=== PATIENT | female | born 1945 | race Caucasian/White ===

== ENCOUNTER 2025-07-02 10:55 | Outpatient (REF) | payer MEDICARE, OTHER, SELFPAY ==
--- NOTE | ~2025-07-02 | XR_ITS ---
EXAMINATION: XR LUMBOSACRAL SPINE CLINICAL INFORMATION: M43.10 - Spondylolisthesis, site unspecified COMPARISON: None available. TECHNIQUE: Lateral views in neutral, flexion and extension position. AP view. FINDINGS: Multilevel endplate sclerosis and marginal osteophyte formation and/syndesmophyte formation throughout the axial skeleton from the lower thoracic to the lumbar spine. S-shaped curvature of the thoracolumbar spine. Grade 1 anterolisthesis L4-5 in neutral position without reduction or motion during flexion and or extension position. Vascular calcifications, aorta. Vascular clips right upper quadrant abdomen likely prior cholecystectomy. Old superior endplate compression deformities in the lower thoracic spine. XR/XR lumbar spine 4V min IMPRESSION: Multilevel thoracolumbar spondylosis resulting in grade 1 anterolisthesis L4-5 without gross instability. Electronically signed by: Bridger Hinton MD 07/02/2025 11:41 AM EDT
== END 2025-07-02 10:56 | disposition home or self-care (01) ==
LOC: HO.HOSX 10:55
PROVIDERS: Visit Provider Physician Assistant
DX: M43.16 Spondylolisthesis, lumbar region (principal)
CPT/HCPCS: 72110; 99202

== ENCOUNTER 2025-07-02 10:55 | Outpatient (AMB) | payer MEDICARE, OTHER, SELFPAY ==
--- NOTE | 2025-07-02 10:59 | A.SPINEOV_ITS ---
Vital Signs 07/02/25 11:03 Height 5 ft 1 in Weight 215 lb BMI 40.6 Intake Visit Reasons: LBP. Don both leg pain Intake Note: Ms. Douglass is here today c/o Low back pain. Display And Banner Designer Required: No Allergies Iodinated Contrast Media (Contrast Dye) Allergy (Severe, Verified 07/02/25 11:05) Shakiness Noseqny-JHN-NiW Reductase Inhibitor Allergy (Severe, Verified 07/02/25 11:05) Headache Sulfa (Sulfonamide Antibiotics) Allergy (Severe, Verified 07/02/25 11:05) Itching Physical Exam Vital Signs: BMI result Body Mass Index 40.6 Assessment & Plan Assessment & Plan (1) Spondylolisthesis: Code(s): M43.10 - Spondylolisthesis, site unspecified Category: Medical Plan Debby is a pleasant 79 year old female who is self referred to our clinic today for evaluation of low back pain and shooting pains her bilateral lower extremities. She reports this has been ongoing for many years, however has worsened over the course of the last few months. She denies any recent inciting incident that worsened her pain, and simply states that her pain began increasing in severity. When describing her pain she runs her hands in an axial fashion across her low back, and then states that shoots into her bilateral posterior buttocks, lateral thighs, down into the posterior gastrocnemius, and terminates near the lateral calf/dorsal foot. This happens bilaterally, but is notably worse on the right hand side. In addition to this she does report some numbness/tingling associated with the shooting pain down her legs. She states that 1st thing in the morning when attempting to mobilize, and later in the day before bed her pain is the worst. During the day, when she is up walking around or mobilizing she feels like her pain is the best. She does report increased exacerbations of pain with positional changes such as rising from a seated position or getting up out of bed. She states that she is currently taking gabapentin to help mitigate some of her symptoms, but has also attempted Tylenol and NSAIDs in the past. She does not tolerate NSAIDs well, as she has a previous history of colon cancer. She reports that she is currently in physical therapy formally, and also has a son that works in physical therapy who has been helping her with at-home stretching/exercise. Despite this she does not feel it is helping her very much. She has attempted massage therapy in an effort to treat this, and asked several questioned regarding injections. She did not bring her medical Hx / records with her to this visit. PMH: The patient reports she has not unspecified heart murmur. She has osteoarthritis in her right knee. She has dry eyes. She reports history of cholecystectomy, hysterectomy, bladder suspension, colon cancer. She supplements with several vitamins daily due to her poor GI absorption. She has a Hx of severe osteoporosis with 3 years of Reclast infusions. She now reports she only has osteopenia. She denies any diabetes / glucose control issues, denies any other cardiac issues, denies any pulmonary issues. Takes no blood thinners. Social hx: The patient does not smoke, reports no substance use. Medications: The patient reports taking cyclosporin eye drops, Zetia, multiple sdsu-kyg-rqgvhbi supplements, gabapentin. She denies any other medication use. Allergies: Statins, contrast media, sulfa. Physical exam: The patient has 5/5 strength of her upper and lower extremities. She does somewhat struggle to engage full strength in her lower extremities due to the pain. She ambulates well with a non spastic/nonantalgic gait, but is slightly he is in the hunched over when ambulating. She is able to rise from a seated position without much difficulty, and gets up onto the examination table without issue. She uses no assistive devices to ambulate. Her reflexes are 1+ hypoactive in the patella and Achilles, but 2+ normal elsewhere. She has no sensational deficits reported on light touch examination. (-) bilateral straight leg raise. (-) Bach's. (-) clonus. Imaging review: MRI of the lumbar spine completed at [facility] 06/12/2025 shows evidence of spondylolisthesis L4-5 with severe central canal and bilateral foraminal stenosis at this level. Notable compression deformity of L1 & T12. Dynamic lumbar spine x-rays completed during this visit show slightly worsening listhesis at L4-5 which I would rate as a grade 2. There also appears to be a slight levoscoliosis of the lumbar/thoracic spine with the apex near L1. Impression: Debby is a pleasant 79-year-old female who comes in today for evaluation of back pain and shooting pain into her bilateral lower extremities. Has been ongoing for many years, but has significantly worsened over the course of the last few months. The patient is now to the point where she reports 8/10 pain which is nearly constant throughout the day. Her pain is most likely originating from the spondylolisthesis seen at L4-5, causing severe nerve compression. She has attempted several different types of conservative treatment without relief. She did ask many questions regarding cortisone injections for the lumbar spine as an alternative to surgical intervention. I would like to obtain her medical records from her primary care office, given that she has a Hx of severe osteoporosis and notable compression deformities seen on imaging. In the interim I will refer her to [facility] (per her request) for consideration of injections at L4-5 for symptom relief. I would like her to follow up with our office again if her pain worsens, or she does not have meaningful response to injections. By then we will have her records and can better ascertain if she is a candidate for surgery. Thank you for allowing us to care for your patient. The total time spent with this visit with this patient was 67 minutes reviewing history, physical exam, MRI imaging review, dynamic lumbar spine x-ray imaging, and implementation of treatment plan or further diagnostic testing Tyrone Carrillo MD,PhD [facility] Orders: Orders XR lumbar spine 4V min Today M43.10 - Spondylolisthesis, site unspecified Coding Level of Care Code New Pt Level 5 (42041) Diagnoses Spondylolisthesis M43.10
[2025-07-02 11:03] VITALS: BMI 40.6
--- OUTSIDE RECORDS SUMMARY | 2025-07-02 12:24 | XMS_ITS | Encounter Summary ---
Author Organization [facility] Address [address] [place] [address] Phone Care Team Providers Care Waterproofing Mixer Name Role Phone Melanie Godoy MD Primary Care Provide r Bob Pena MD Unavailable [phone] Encounter Details Date Type Department Care Team (Late st Contact Info) Description 06/24/2020 Procedure Pass [facility] [place] [address] [facility], 6th [place] [address] Social History Tobacco Use Types Packs/Day Years Used Date Smoking Tobacco: Never Smokeless Tobacco: Never Alcohol Use Standard Drinks/Week Comments Yes 0 (1 standard drink = 0.6 oz pur e alcohol) 3 cocktails or wine Comments Unknown Sex and Gender Information Value Date Recorded Sex Assigned at Female 04/09/2020 9:05 AM EDT Legal Sex Female 7:15 PM EST Gender Identity Female 04/09/2020 9:05 AM EDT Sexual Orientation Not on file documented as of this encounter Plan of Treatment Not on file documented as of this encounter Visit Diagnoses Not on filedocumented in this encounter Care Teams Waterproofing Mixer Relationship Specialty Start Date End Date Melanie Godoy MD [address] [place] [address] PCP - General 7/1/14 Bob Pena MD [address] [place] [address] [address] [place] [address] [email or web address] Primary Oncologist Medical Oncology 07/31/19 documented as of this encounter Additional Source Comments The information contained in this document represents components of the legal health record. It is not the complete legal health record.[facility]
--- OUTSIDE RECORDS SUMMARY | 2025-07-02 12:24 | XMS_ITS | Encounter Summary ---
Author Organization [facility] Address [address] [place] [address] Phone Care Team Providers Care Machine Pack Assembler Name Role Phone Melanie Godoy MD Primary Care Provide r Bob Pena MD Unavailable [phone] Encounter Details Date Type Department Care Team (Late st Contact Info) Description 06/24/2020 Procedure Pass [facility] for [facility] - [place] [address] [facility], 6th [place] [address] Social History Tobacco Use Types Packs/Day Years [...] on filedocumented in this encounter Care Teams Machine Pack Assembler Relationship Specialty Start Date End Date Melanie Godoy MD [address] [place] [address] PCP - General 7/1/14 Bob Pena MD [address] [place] [address] [address] [place] [address] [email or web address] Primary Oncologist Medical Oncology 07/31/19 documented as of this encounter Additional Source Comments The information contained in this document represents components of the legal health record. It is not the complete legal health record.[facility]
--- OUTSIDE RECORDS SUMMARY | 2025-07-02 12:25 | XMS_ITS | Encounter Summary ---
Author Organization [facility] Address [address] [place] [address] Phone Care Team Providers Care Copy Room Technician Name Role Phone Melanie Godoy MD Primary Care Provide r Bob Pena MD Unavailable [phone] Encounter Details Date Type Department Care Team (Late st Contact Info) Description 03/17/2020 Procedure Pass [facility] [place] [address] [facility], 6th [place] [address] Social History Tobacco Use Types Packs/Day Years [...] on filedocumented in this encounter Care Teams Copy Room Technician Relationship Specialty Start Date End Date Melanie Godoy MD [address] [place] [address] PCP - General 7/1/14 Bob Pena MD [address] [place] [address] [address] [place] [address] [email or web address] Primary Oncologist Medical Oncology 07/31/19 documented as of this encounter Additional Source Comments The information contained in this document represents components of the legal health record. It is not the complete legal health record.[facility]
--- OUTSIDE RECORDS SUMMARY | 2025-07-02 12:25 | XMS_ITS | Encounter Summary ---
Author Organization [facility] Address [address] [place] [address] Phone Care Team Providers Care Highwall Drill Operator Name Role Phone Melanie Godoy MD Primary Care Provide r Bob Pena MD Unavailable [phone] Encounter Details Date Type Department Care Team (Late st Contact Info) Description 05/06/2022 Procedure Pass [facility] [place] [address] [facility], 4th [place] [address] Social History Tobacco Use Types Packs/Day Years Used Date Smoking Tobacco: Never Smokeless Tobacco: Never Alcohol Use Standard Drinks/Week Comments Not Currently 5 (1 standard drink = 0.6 oz pur [...] on filedocumented in this encounter Care Teams Highwall Drill Operator Relationship Specialty Start Date End Date Melanie Godoy MD [address] [place] [address] PCP - General 04/03/14 Bob Pena MD [address] [place] [address] [address] [place] [address] [email or web address] Primary Oncologist Medical Oncology 07/31/19 documented as of this encounter Additional Source Comments The information contained in this document represents components of the legal health record. It is not the complete legal health record.[facility]
--- OUTSIDE RECORDS SUMMARY | 2025-07-02 12:25 | XMS_ITS | Encounter Summary ---
Author Organization [facility] Address [address] [place] [address] Phone Care Team Providers Care Skidder Loader Name Role Phone Melanie Godoy MD Primary Care Provide r Bob Pena MD Unavailable [phone] Encounter Details Date Type Department Care Team (Late st Contact Info) Description 04/09/2025 Procedure Pass [facility] 4 ENDO DEPT [address] [facility], 4th [place] [address] Social History Tobacco Use Types Packs/Day Years Used Date Smoking Tobacco: Never Smokeless Tobacco: Never Alcohol Use Standard Drinks/Week Comments Not Currently 5 (1 standard drink = 0.6 oz pur e alcohol) 3 cocktails or wine Education Answer Date Recorded Are you interested in more education? Not on jj e 01/28/2023 Are you concerned about learning? Not on file 01/28/2023 No 01/28/2023 No 01/28/2023 Digital Access Answer Date Recorded No 03/01/2023 No 03/01/2023 Reliable internet access at home? Not on file 03/01/2023 Device with a working camera? Not on file Intimate Partner Violence Answer Date R ecorded Are you denied basic needs s uch as food, clothing, or medical care? No 04/09/2025 In the past 12 months have y ou been in a relationship with a person who hurts, threatens, or tries to control you? No 04/09/2025 Are you denied basic needs s uch as food, clothing, or medical care? No 04/09/2025 In the past 12 months have y ou been in a relationship with a person who hurts, threatens, or tries to control you? No 04/09/2025 Comments No Sex and Gender Information Value Date Recorded Sex Assigned at Female 04/09/2020 9:05 AM EDT Legal Sex Female 7:15 PM EST Gender Identity Female 04/09/2020 9:05 AM EDT Sexual Orientation Not on file documented as of this encounter Plan of Treatment Not on file documented as of this encounter Visit Diagnoses Not on filedocumented in this encounter Care Teams Skidder Loader Relationship Specialty Start Date End Date Melanie Godoy MD [address] [place] [address] PCP - General 04/03/14 Bob Pena MD [address] [place] [address] [address] [place] [address] [email or web address] Primary Oncologist Medical Oncology 07/31/19 documented as of this encounter Additional Source Comments The information contained in this document represents components of the legal health record. It is not the complete legal health record.[facility]
--- OUTSIDE RECORDS SUMMARY | 2025-07-02 12:25 | XMS_ITS | Encounter Summary ---
Author Organization [facility] Address [address] [place] [address] Phone Care Team Providers Care Equipment Associate Name Role Phone Melanie Godoy MD Primary Care Provide r Bob Pena MD Unavailable [phone] Encounter Details Date Type Department Care Team (Late st Contact Info) Description 07/06/2018 Procedure Pass [facility] [place] 4 ENDO DEPT [address] [facility], 4th [place] [address] Social History Tobacco Use Types Packs/Day Years [...] on filedocumented in this encounter Care Teams Equipment Associate Relationship Specialty Start Date End Date Melanie Godoy MD [address] [place] [address] PCP - General 04/03/14 Bob Pena MD [address] [place] [address] [address] [place] [address] [email or web address] Primary Oncologist Medical Oncology 07/31/19 documented as of this encounter Additional Source Comments The information contained in this document represents components of the legal health record. It is not the complete legal health record.[facility]
--- OUTSIDE RECORDS SUMMARY | 2025-07-02 12:25 | XMS_ITS | Encounter Summary ---
Author Organization [facility] Address [address] [address] [place] [address] Phone Care Team Providers Care Radio Interference Investigator Name Role Phone Melanie Godoy MD Primary Care Provide r Bob Pena MD Unavailable [phone] Encounter Details Date Type Department Care Team (Late st Contact Info) Description 05/17/2018 Procedure Pass [facility], [place] [address] [facility], 2nd Floor, [address] [place] [address] Social History Tobacco Use Types Packs/Day Years [...] on filedocumented in this encounter Care Teams Radio Interference Investigator Relationship Specialty Start Date End Date Melanie Godoy MD [address] [place] [address] PCP - General 04/03/14 Bob Pena MD [address] [place] [address] [address] [place] [address] [email or web address] Primary Oncologist Medical Oncology 07/31/19 documented as of this encounter Additional Source Comments The information contained in this document represents components of the legal health record. It is not the complete legal health record.[facility]
--- OUTSIDE RECORDS SUMMARY | 2025-07-02 12:25 | XMS_ITS | Encounter Summary ---
Author Organization [facility] Address [address] [place] [address] Phone Care Team Providers Care Financial Planning Assistant Name Role Phone Melanie Godoy MD Primary Care Provide r Bob Pena MD Unavailable [phone] Encounter Details Date Type Department Care Team (Late st Contact Info) Description 05/17/2018 Procedure Pass [facility], [address] [facility], 2nd Floor, [address] [place] [address] Social History Tobacco Use Types Packs/Day Years [...] on filedocumented in this encounter Care Teams Financial Planning Assistant Relationship Specialty Start Date End Date Melanie Godoy MD [address] [place] [address] PCP - General 04/03/14 Bob Pena MD [address] [place] [address] [address] [place] [address] [email or web address] Primary Oncologist Medical Oncology 07/31/19 documented as of this encounter Additional Source Comments The information contained in this document represents components of the legal health record. It is not the complete legal health record.[facility]
--- OUTSIDE RECORDS SUMMARY | 2025-07-02 12:25 | XMS_ITS | Encounter Summary ---
Author Organization [facility] Address [address] [place] [address] Phone Care Team Providers Care Transmission Worker Name Role Phone Melanie Godoy MD Primary Care Provide r Bob Pena MD Unavailable [phone] Encounter Details Date Type Department Care Team (Late st Contact Info) Description 12/25/2020 Procedure Pass [facility] for Out[facility] [place] [address] [facility], 6th [place] [address] Social History Tobacco Use Types Packs/Day Years [...] on filedocumented in this encounter Care Teams Transmission Worker Relationship Specialty Start Date End Date Melanie Godoy MD [address] [place] [address] PCP - General 04/03/14 Bob Pena MD [address] [place] [address] [address] [place] [address] [email or web address] Primary Oncologist Medical Oncology 07/31/19 documented as of this encounter Additional Source Comments The information contained in this document represents components of the legal health record. It is not the complete legal health record.[facility]
--- OUTSIDE RECORDS SUMMARY | 2025-07-02 12:25 | XMS_ITS | Encounter Summary ---
Author Organization [facility] Address [address] [place] [address] Phone Care Team Providers Care World Geography Teacher Name Role Phone Melanie Godoy MD Primary Care Provide r Bob Pena MD Unavailable [phone] Encounter Details Date Type Department Care Team (Late st Contact Info) Description 06/27/2018 Procedure [place] [facility] [place] [address] [facility], 2nd Floor, [address] [place] [address] Social History Tobacco Use Types Packs/Day Years [...] on filedocumented in this encounter Care Teams World Geography Teacher Relationship Specialty Start Date End Date Melanie Godoy MD [address] [place] [address] PCP - General 04/03/14 Bob Pena MD [address] [place] [address] [address] [place] [address] [email or web address] Primary Oncologist Medical Oncology 07/31/19 documented as of this encounter Additional Source Comments The information contained in this document represents components of the legal health record. It is not the complete legal health record.[facility]
--- OUTSIDE RECORDS SUMMARY | 2025-07-02 12:25 | XMS_ITS | Encounter Summary ---
Author Organization [facility] Address [address] [place] [address] Phone Care Team Providers Care Chain Sales Consultant Name Role Phone Melanie Godoy MD Primary Care Provide r Bob Pena MD Unavailable [phone] Encounter Details Date Type Department Care Team (Late st Contact Info) Description 05/20/2022 Procedure Pass [facility] [place] [address] [facility], 6th [place] [address] Social History Tobacco Use Types Packs/Day Years [...] on filedocumented in this encounter Care Teams Chain Sales Consultant Relationship Specialty Start Date End Date Melanie Godoy MD [address] [place] [address] PCP - General 04/03/14 Bob Pena MD [address] [place] [address] [address] [place] [address] [email or web address] Primary Oncologist Medical Oncology 07/31/19 documented as of this encounter Additional Source Comments The information contained in this document represents components of the legal health record. It is not the complete legal health record.[facility]
--- OUTSIDE RECORDS SUMMARY | 2025-07-02 12:25 | XMS_ITS | Encounter Summary ---
Author Organization [facility] Address [address] [place] [address] Phone Care Team Providers Care Agricultural Technician Name Role Phone Melanie Godoy MD Primary Care Provide r Bob Pena MD Unavailable [phone] Encounter Details Date Type Department Care Team (Late st Contact Info) Description 03/17/2020 Procedure Pass [facility] for Out[facility] Care - [place] [address] [facility], 6th [place] [address] Social History Tobacco Use Types Packs/Day Years [...] on filedocumented in this encounter Care Teams Agricultural Technician Relationship Specialty Start Date End Date Melanie Godoy MD [address] [place] [address] PCP - General 7/1/14 Bob Pena MD [address] [place] [address] [address] [place] [address] [email or web address] Primary Oncologist Medical Oncology 07/31/19 documented as of this encounter Additional Source Comments The information contained in this document represents components of the legal health record. It is not the complete legal health record.[facility]
--- OUTSIDE RECORDS SUMMARY | 2025-07-02 12:25 | XMS_ITS | Encounter Summary ---
Author Organization [facility] Address [address] [place] [address] Phone Care Team Providers Care Pulmonary Physical Therapist Name Role Phone Melanie Godoy MD Primary Care Provide r Bob Pena MD Unavailable [phone] Encounter Details Date Type Department Care Team (Late st Contact Info) Description 04/28/2021 Procedure Pass [facility] [place] [address] [facility], [facility], 6th [place] [address] Social History Tobacco Use Types Packs/Day Years [...] on filedocumented in this encounter Care Teams Pulmonary Physical Therapist Relationship Specialty Start Date End Date Melanie Godoy MD [address] [place] [address] PCP - General 04/03/14 Bob Pena MD [address] [place] [address] [address] [place] [address] [email or web address] Primary Oncologist Medical Oncology 07/31/19 documented as of this encounter Additional Source Comments The information contained in this document represents components of the legal health record. It is not the complete legal health record.[facility]
--- OUTSIDE RECORDS SUMMARY | 2025-07-02 12:25 | XMS_ITS | Encounter Summary ---
Author Organization [facility] Address [address] [place] [address] Phone Care Team Providers Care Positive Printer Operator Name Role Phone Melanie Godoy MD Primary Care Provide r Bob Pena MD Unavailable Reason for Visit * Reason Comments Medication Refill Encounter Details Date Type Department Care Team (Late st Contact Info) Description 01/18/2019 Refill [facility] [address] [facility], 7th Floor, [address] [place] [address] Bob Pena MD [address] [facility] [address] [place] [address] [email or web address] [email or web address] Medication Refill Social History Tobacco Use Types Packs/Day Years [...] on filedocumented in this encounter Care Teams Positive Printer Operator Relationship Specialty Start Date End Date Melanie Godoy MD [address] [place] [address] PCP - General 04/03/14 Bob Pena MD [address] [facility] [address] [place] [address] [email or web address] Primary Oncologist Medical Oncology 07/31/19 documented as of this encounter Additional Source Comments The information contained in this document represents components of the legal health record. It is not the complete legal health record.[facility]
--- OUTSIDE RECORDS SUMMARY | 2025-07-02 12:25 | XMS_ITS | Encounter Summary ---
Author Organization [facility] Address [address] [place] [address] Phone Care Team Providers Care Machine Engineer Name Role Phone Melanie Godoy MD Primary Care Provide r Bob Pena MD Unavailable [phone] Encounter Details Date Type Department Care Team (Late st Contact Info) Description 04/18/2018 Procedure Pass [facility] ENDO DEPT [address] [facility], 4th [place] [address] Social History Tobacco Use Types Packs/Day Years [...] filedocumented in this encounter Care Teams Machine Engineer Relationship Specialty Start Date End Date Melanie Godoy MD 20 [place] [address] PCP - General 04/03/14 Bob Pena MD [address] [place] [address] [address] [place] [address] [email or web address] [email or web address] Primary Oncologist Medical Oncology 07/31/19 documented as of this encounter Additional Source Comments The information contained in this document represents components of the legal health record. It is not the complete legal health record.[facility]
--- OUTSIDE RECORDS SUMMARY | 2025-07-02 12:25 | XMS_ITS | Encounter Summary ---
Author Organization [facility] Address [address] [place] [address] Phone Care Team Providers Care Pilot Boat Operator Name Role Phone Melanie Godoy MD Primary Care Provide r Bob Pena MD Unavailable [phone] Encounter Details Date Type Department Care Team (Late st Contact Info) Description 04/28/2021 Procedure Pass [facility] [address] [facility], 6th [place] [address] Social History Tobacco Use Types Packs/Day Years [...] on filedocumented in this encounter Care Teams Pilot Boat Operator Relationship Specialty Start Date End Date Melanie Godoy MD [address] [place] [address] PCP - General 04/03/14 Bob Pena MD [address] [place] [address] [address] [place] [address] [email or web address] Primary Oncologist Medical Oncology 07/31/19 documented as of this encounter Additional Source Comments The information contained in this document represents components of the legal health record. It is not the complete legal health record.[facility]
--- OUTSIDE RECORDS SUMMARY | 2025-07-02 12:25 | XMS_ITS | Encounter Summary ---
Author Organization [facility] Address [address] [place] [address] Phone Care Team Providers Care Car Rental Manager Name Role Phone Melanie Godoy MD Primary Care Provide r Bob Pena MD Unavailable [phone] Encounter Details Date Type Department Care Team (Late st Contact Info) Description 05/20/2022 Procedure Pass [facility] - [place] [address] [facility], 6th [place] [address] Social History Tobacco Use Types Packs/Day Years [...] on filedocumented in this encounter Care Teams Car Rental Manager Relationship Specialty Start Date End Date Melanie Godoy MD [address] [place] [address] PCP - General 04/03/14 Bob Pena MD [address] [place] [address] [address] [place] [address] [email or web address] [email or web address] Primary Oncologist Medical Oncology 07/31/19 documented as of this encounter Additional Source Comments The information contained in this document represents components of the legal health record. It is not the complete legal health record.[facility]
--- OUTSIDE RECORDS SUMMARY | 2025-07-02 12:25 | XMS_ITS | Encounter Summary ---
Author Organization [facility] Address [address] [place] [address] Phone Care Team Providers Care Sales Review Clerk Name Role Phone Melanie Godoy MD Primary Care Provide r Bob Pena MD Unavailable [phone] Encounter Details Date Type Department Care Team (Late st Contact Info) Description 04/21/2019 Procedure Pass [facility] - MRI [address] [facility], 6th [place] [address] Social History Tobacco Use Types Packs/Day Years [...] on filedocumented in this encounter Care Teams Sales Review Clerk Relationship Specialty Start Date End Date Melanie Godoy MD 20 [place] [address] PCP - General 7/1/14 Bob Pena MD [address] [place] [address] [address] [place] [address] [email or web address] Primary Oncologist Medical Oncology 07/31/19 documented as of this encounter Additional Source Comments The information contained in this document represents components of the legal health record. It is not the complete legal health record.[facility]
--- OUTSIDE RECORDS SUMMARY | 2025-07-02 12:25 | XMS_ITS | Clinical Summary ---
Author Organization [facility] Address [address] [place] [address] Phone Care Team Providers Care Refiner Operator Name Role Phone Melanie Godoy MD Primary Care Provide r Bob Pena MD Unavailable [phone] Allergies Active Allergy Reactions Criticality Noted Date Comments Gluten Other (See Comments) Medium 05/23/2012 Sensitivity Iodinated Contrast Media 05/23/2012 UNSPECIFIED Contrast Media - [facility] Allergy Remediation Nitrofurantoin Monohyd/M-Cryst Rash Low 04/14/2018 Itching , severe headache Sulfa (Sulfonamide Antibiotics) Rash Medium 05/23/2012 Medications cyclosporine (RESTASIS) 0.05 % suspension Place 1 drop into each eye 2 (two) times a day. Active CYANOCOBALAMIN, VITAMIN B-12, (VITAMIN B-12 INJ) Inject as directed every 30 (thirty) days. Active therapeutic multivitamin tablet Take 1 tablet by mouth daily. Active cholecalciferol (VITAMIN D3) 4,000 unit tablet Take 4,000 Units by mouth daily. Active bacillus coagulans-inulin 1 billion-250 cell-mg Cap Take 250 mg by mouth daily. Active DOCOSAHEXANOIC ACID/EPA (FISH OIL ORAL) Take by mouth daily. Active predniSONE (DELTASONE) 50 MG tablet Take 1 tablet by mouth 13, 7 and 1 hour(s) before your appointment where you will be receiving IV contrast dye for your imaging study 3 tablet 1 4 Active Additional Information Patient not taking.Reported on 03/29/2025 loratadine (CLARITIN) 10 mg tablet Take 1 tablet (10 mg total) by mouth as directed. Take 1 hour before your appointment where you will be receiving IV contrast dye for your imaging study 1 tablet 4 Active Additional Information Patient not taking.Reported on 03/29/2025 ezetimibe (ZETIA) 10 mg tablet Take 10 mg by mouth daily. Active Active Problems Patient Care Coordination No te Formatting of this note migh t be different from the original. 10/19/18 Pt was started on Lovenox today most of it was covered by her insurance but she still has a $155.25 copay. I called [facility] and they said the actual cost of the 60 syringes/30 days is over $2000 so her plan paid a large amount. It's not a PA issue - the rx went through insurance. They said it might be a deductible issue (often so at the beginning of the calendar year) but the pt. would have to call the Customer Service phone number on the back of her card to talk about it with the plan. They won't give us that information. Problem Noted Date Diagnosed Date Adenocarcinoma of colon 10/19/2018 Cancer Staging:Clinical:Stage I(cT2, cN0, cM0) - Signed by Bob Pena MD on 01/18/2019 S/P colectomy 06/09/2018 Encounters Date Type Department Care Team Description 06/11/2025 4:30 PM EDT Telemedicine [facility] [address], 7th [address], [address] [place] [address] Bob Pena MD Adenocarcinoma of colon (Primary Dx) 05/30/2025 11:26 AM EDT - 05/30/2025 11:59 PM EDT Hospital Encounter [facility] [address] [place] [address] Bob Pena MD Discharge Disposition: Home or Self Care 04/09/2025 3:00 PM EDT - 04/09/2025 4:00 PM EDT Surgery [place] [address] ENDO DEPT [address] [facility] [address], [address]th [place] [address] Clarissa Perdomo MD COLONOSCOPY 04/09/2025 2:40 PM EDT Anesthesia Event [facility] 4 ENDO DEPT [address] [facility], [address] [place] [address] Shahriar Rasmussen MD Famolare, Cynthia, RN 04/09/2025 12:03 PM EDT - 04/09/2025 4:17 PM EDT Hospital Encounter [facility] 4 ENDO DEPT [address] [facility], [address] [place] [address] Clarissa Perdomo MD Discharge Disposition: Home or Self Care 04/09/2025 Procedure Pass [facility] 4 ENDO DEPT [address] [facility], [address] [place] [phone] from Last 3 Months Family History Medical History Relation Comments Pancreatic cancer Brother Lung cancer Father Ovarian cancer Sister Relation Status Comments Brother Father Sister Social History Tobacco Use Types Packs/Day Years Used Date Smoking Tobacco: Never Smokeless Tobacco: Never Tobacco Cessation:Counseling Given: Not Answered Alcohol Use Standard Drinks/Week Comments Not Currently [...] AM EDT Sexual Orientation Not on file Last Filed Vital Signs Vital Sign Reading Time Taken Comments Blood Pressure 149/63 04/09/2025 4:05 PM EDT Pulse 75 04/09/2025 4:05 PM EDT Temperature 36.3 C (97.4 F) 04/09/2025 1:47 PM EDT Respiratory Rate 27 04/09/2025 4:05 PM EDT Oxygen Saturation 99% 04/09/2025 4:05 PM EDT Inhaled Oxygen Concentration - - Weight 84.4 kg (186 lb) 03/29/2025 1:54 PM EDT Height 154 cm (5' 0.63 ) 03/29/2025 1:54 PM EDT Body Mass Index 35.57 03/29/2025 1:54 PM EDT Plan of Treatment Health Maintenance Due Date Last Done Comments LIPID PANEL 1945 DEPRESSION SCREENING 1958 HEPATITIS C SCREENING 1964 OSTEOPOROSIS SCREENING INITIAL (ONE-TIME) 2011 INFLUENZA VACCINE (#1) 2025 , 06/28/2023, 07/14/2022, Additional history exists Adult Td,Tdap Booster 10/29/2031 10/29/2021, 015 ZOSTER VACCINES Completed 03/30/2019, 12/26/2018 RSV VACCINE Completed 08/13/2023 PNEUMOCOCCAL VACCINES (50+ years) Completed 07/14/2024, 04/16/2017 COVID-19 VACCINE Completed 12/25/2024, 06/2024, 12/24/2023, Additional history exists SMOKING STATUS SCREENING (Once After 26 Yrs) Completed 04/09/2025 HEPATITIS A VACCINES Aged Out No long er eligible based on patient's age to complete this topic HIB VACCINES Aged Out No longer eligi ble based on patient's age to complete this topic MENINGOCOCCAL VACCINES (ACWY) Aged Out No longer eligible based on patient's age to complete this topic MENINGOCOCCAL VACCINES (B) Aged Out N o longer eligible based on patient's age to complete this topic Medical Devices Implanted Type Area Tea Room Manager Device Identifier Shelf Expiration Date Model / Serial / Lot Bilateral Lens Implant Procedures Procedure Name Priority Date/Time Associated Diagnosis Comments COMPREHENSIVE METABOLIC PANEL Routine 05/30/2025 11:55 AM EDT Adenocarcinoma of colon CARCINOEMBRYONIC ANTIGEN (CEA) Routine 05/30/2025 11:55 AM EDT Adenocarcinoma of colon ENDOSCOPY, COLON 04/09/2025 3:03 PM EDT COLONOSCOPY 04/09/2025 2:59 PM EDT Adenocarcinoma of colon Special Needs Schedule sometime in June through September of 2025Pt confirmed 04/09 proc, added 'other; prep JL04/02/25 from Last 3 Months Results * (ABNORMAL) Comprehensive metabolic panel (05/30/2025 11:55 AM EDT) SODIUM 139 133 - 146 mmol/L [facility] POTASSIUM 4.6 3.3 - 5.1 mmol/L [facility] CHLORIDE 101 96 - 108 mmol/L [facility] CO2 25 21 - 35 mmol/L [facility] BUN 20(H) 6 - 19 mg/dL [facility] CREATININE 0.70 0.5 - 1.5 mg/dL [facility] GLUCOSE 108(H) 70 - 99 mg/dL [facility] ALBUMIN 4.3 3.9 - 4.8 g/dL [facility] TOTAL PROTEIN 7.3 6.5 - 8.0 g/dL [facility] CALCIUM 9.7 8.4 - 10.3 mg/dL [facility] ALKALINE PHOSPHATASE 79 39 - 117 U/L [facility] TOTAL BILIRUBIN 0.4 0.0 - 1.2 mg/dL [facility] AST 29 0 - 37 U/L [facility] ALT 30 0 - 40 U/L [facility] GLOBULIN 3.0 1 - 4.8 g/dL [facility] EGFR 88 >59 mL/min/1.7 3m2 [facility] Comment:Estimated glomerular filtration rate calculated using the CKD-EPI refit equation. ANION GAP 18 10 - 20 mmol/L [facility] Blood 05/30/2025 11:5 5 AM EDT 05/30/2025 11:59 AM EDT Bob Pena MD LAB BLOOD ORDERABLES Fi nal Result Performing Organization Address [facility] Co de Phone Number [address] [address] * (ABNORMAL) Carcinoembryonic antigen (CEA) (05/30/2025 11:55 AM EDT) CEA 4.5(H) 0 - 3.4 ng/mL [facility] Comment: Test Methodology Laura [id number] Patient results determined by assays using different manufacturers or methods may not be comparable. Blood 05/30/2025 11:5 5 AM EDT 05/30/2025 11:59 AM EDT Bob Pena MD LAB BLOOD ORDERABLES Fi nal Result Performing Organization Address [facility] Co de Phone Number [address] [address] * ENDOSCOPY, COLON (04/09/2025 3:03 PM EDT) 04/09/2025 3:03 PM EDT Narrative Transcriptions Clarissa Perdomo MD - 04/09/2025 3:03 PM EDT Gastrointestinal Endoscopy Unit Patient Name: Debby Douglass Exam Date: 04/09/2025 3:03 PM Date of : 1945 Admit Type: Outpatient Age: 79 Room: [place] [address] Gender: Female Note Status: Finalized Attending MD: Clarissa Perdomo MD, Procedure: Colonoscopy Indications: High risk colon cancer surveillance: Personal history of colon cancer Providers: Clarissa Perdomo MD Referring MD: Melanie Godoy (Referring MD) Medicines: Monitored Anesthesia Care Complications: No immediate complications. Procedure: After obtaining informed consent, the endoscope was passed under direct vision. Throughout the procedure, the patient's blood pressure, pulse, and oxygen saturations were monitored continuously . The Endoscope was introduced through the anus and advanced to the the ileocolonic anastomosis. The colonoscopy was performed without difficulty. The patient tolerated the procedure well. The quality of the bowel preparation was evaluated using the BBPS ([place] Bowel Preparation Scale) with scores of: Right Colon = 3, Transverse Colon = 3 and Left Colon = 3 (entire mucosa seen well with no residual staining, small fragments of stool or opaque liquid). The total BBPS score equals 9. Findings: Multiple diverticula were found in the sigmoid colon and descending colon. Small Lipoma in the sigmoid colon. The exam was otherwise without abnormality. Hemorrhoids were found. Impression: - Diverticulosis in the sigmoid colon and in the descending colon. - The examination was otherwise normal. - Small Lipoma in the sigmoid colon. - Hemorrhoids. - No specimens collected. Recommendation: - Repeat colonoscopy in 5 years for surveillance. Attending Participation: I personally performed the entire procedure. I was personally present throughout the entire procedure. Anesthesia administered sedation. Clarissa Perdomo MD, [id number] 04/09/2025 3:20:18 PM The attending physician was present throughout the entire procedure. Number of Addenda: 0 Note Initiated On: 04/09/2025 3:03 PM Melanie Godoy MD GI PROCEDURE ORDERABL ES Final Result from Last 3 Months Insurance [facility] MEDICARE ENHANCE SUPPLEMENT MEDICARE PART A & B MEDICARE ENHANCE SUPPLEMENT [facility] Address[facility] [address] [place] [address] MEDICARE PART A & [place] [address] [address] MEDICARE ENHANCE SUPPLEMENT MEDICARE PART A & B [facility] MEDICARE ENHANCE SUPPLEMENT [facility] Address: [address] [place] [address] MEDICARE PART A & B MEDICARE ENHANCE SUPPLEMENT MEDICARE PART A & B MEDICARE ENHANCE SUPPLEMENT Member Subscriber Plan / Payer ( fective 2016-) Name:Debby Douglass Relation to Subscriber:Self Name:Debby Douglass Payer ID:[id number] (NAIC) Group ID:Not on file Type:[employer] Address: [address] [place] [id number] MEDICARE PART A & B MEDICARE PART A & B MEDICARE PART A & B [employer] MEDICARE ENHANCE SUPPLEMENT MEDICARE PART A & B Advance Directives For more information, please contact: [phone] (9AM - 5PM [place]/[facility], Wednesday-Wednesday) Documents on File Type Date Recorded Patient Search Engine Marketing Strategist Expl anation Healthcare Proxy 06/13/2018 11:11 AM * Full Code (Presumed) (Latest Code Status on File) Date Activated Date Inactivated Comments 06/09/2018 5:11 PM 06/12/2018 2:14 PM * Full Code (Confirmed) Date Activated Date Inactivated Comments 06/09/2018 5:10 PM 06/09/2018 5:11 PM Question Answer Comments Code Status Confirmed With: Patient * Full Code (Presumed) Date Activated Date Inactivated Comments 06/09/2018 10:58 AM 06/09/2018 5:10 PM Care Teams Refiner Operator Relationship Specialty Start Date End Date Melanie Godoy MD [address] [place] [address] PCP - General 04/03/14 Bob Pena MD [address] [place] [address] [address] [place] [address] [email or web address] Primary Oncologist Medical Oncology 07/31/19 Additional Source Comments The information contained in this document represents components of the legal health record. It is not the complete legal health record.[facility]
--- OUTSIDE RECORDS SUMMARY | 2025-07-02 12:25 | XMS_ITS | Encounter Summary ---
Author Organization [facility] Address [address] [place] [address] Phone Care Team Providers Care Boat Oar Maker Name Role Phone Melanie Godoy MD Primary Care Provide r Bob Pena MD Unavailable [phone] Encounter Details Date Type Department Care Team (Late st Contact Info) Description 10/28/2020 Procedure Pass [facility] - [place] [address] [facility], 6th [place] [address] Social History Tobacco Use Types Packs/Day Years [...] on filedocumented in this encounter Care Teams Boat Oar Maker Relationship Specialty Start Date End Date Melanie Godoy MD [address] [place] [address] PCP - General 04/03/14 Bob Pena MD [address] [place] [address] [address] [place] [address] [email or web address] Primary Oncologist Medical Oncology 07/31/19 documented as of this encounter Additional Source Comments The information contained in this document represents components of the legal health record. It is not the complete legal health record.[facility]
--- OUTSIDE RECORDS SUMMARY | 2025-07-02 12:25 | XMS_ITS | Encounter Summary ---
Author Organization [facility] Address [address] [place] [address] Phone Care Team Providers Care Trailer Rental Clerk Name Role Phone Melanie Godoy MD Primary Care Provide r Bob Pena MD Unavailable [phone] Encounter Details Date Type Department Care Team (Late st Contact Info) Description 01/26/2024 Procedure Pass [facility], Ct Scan - [facility] [address] [place] [address] Social History Tobacco Use Types Packs/Day Years [...] with a working camera? Not on file Comments Unknown Sex and Gender Information Value Date Recorded Sex Assigned at Female 04/09/2020 9:05 AM EDT Legal Sex Female 7:15 PM EST Gender Identity Female 04/09/2020 9:05 AM EDT Sexual Orientation Not on file documented as of this encounter Plan of Treatment Not on file documented as of this encounter Visit Diagnoses Not on filedocumented in this encounter Care Teams Trailer Rental Clerk Relationship Specialty Start Date End Date Melanie Godoy MD [address] [place] [address] PCP - General 04/03/14 Bob Pena MD [address] [facility] [address] [place] [address] [email or web address] Primary Oncologist Medical Oncology 07/31/19 documented as of this encounter Additional Source Comments The information contained in this document represents components of the legal health record. It is not the complete legal health record.[facility]
--- OUTSIDE RECORDS SUMMARY | 2025-07-02 12:25 | XMS_ITS | Encounter Summary ---
Author Organization [facility] Address [address] [place] [address] Phone Care Team Providers Care Integrated Campaign Manager Name Role Phone Melanie Godoy MD Primary Care Provide r Bob Pena MD Unavailable [phone] Encounter Details Date Type Department Care Team (Late st Contact Info) Description 12/07/2022 Procedure Pass [facility] [place] [address] [facility], 6th [place] [address] Social History Tobacco Use Types Packs/Day Years [...] on filedocumented in this encounter Care Teams Integrated Campaign Manager Relationship Specialty Start Date End Date Melanie Godoy MD [address] [place] [address] PCP - General 04/03/14 Bob Pena MD [address] [place] [address] [address] [place] [address] [email or web address] Primary Oncologist Medical Oncology 07/31/19 documented as of this encounter Additional Source Comments The information contained in this document represents components of the legal health record. It is not the complete legal health record.[facility]
--- OUTSIDE RECORDS SUMMARY | 2025-07-02 12:25 | XMS_ITS | Encounter Summary ---
Author Organization [facility] Address [address] [place] [address] Phone Care Team Providers Care Electrical Panel Builder Name Role Phone Melanie Godoy MD Primary Care Provide r Bob Pena MD Unavailable [phone] Encounter Details Date Type Department Care Team (Late st Contact Info) Description 04/25/2019 Procedure Pass [facility] 4 ENDO DEPT [address] [facility], 4th [place] [address] Social History Tobacco Use Types Packs/Day Years [...] on filedocumented in this encounter Care Teams Electrical Panel Builder Relationship Specialty Start Date End Date Melanie Godoy MD [address] [place] [address] PCP - General 04/03/14 Bob Pena MD [address] [place] [address] [address] [place] [address] [email or web address] Primary Oncologist Medical Oncology 07/31/19 documented as of this encounter Additional Source Comments The information contained in this document represents components of the legal health record. It is not the complete legal health record.[facility]
--- OUTSIDE RECORDS SUMMARY | 2025-07-02 12:25 | XMS_ITS | Encounter Summary ---
Author Organization [facility] Address [address] [place] [address] Phone Care Team Providers Care Environmental Consultant Name Role Phone Melanie Godoy MD Primary Care Provide r Bob Pena MD Unavailable [phone] Encounter Details Date Type Department Care Team (Late st Contact Info) Description 12/07/2022 Procedure Pass [facility] [place] [address] [facility], 6th [place] [address] Social History Tobacco Use Types Packs/Day Years [...] on filedocumented in this encounter Care Teams Environmental Consultant Relationship Specialty Start Date End Date Melanie Godoy MD [address] [place] [address] PCP - General 04/03/14 Bob Pena MD [address] [place] [address] [address] [place] [address] [email or web address] Primary Oncologist Medical Oncology 07/31/19 documented as of this encounter Additional Source Comments The information contained in this document represents components of the legal health record. It is not the complete legal health record.[facility]
--- OUTSIDE RECORDS SUMMARY | 2025-07-02 12:25 | XMS_ITS | Encounter Summary ---
Author Organization [facility] Address [address] [place] [address] Phone Care Team Providers Care Toll Ticket Clerk Name Role Phone Melanie Godoy MD Primary Care Provide r Bob Pena MD Unavailable [phone] Encounter Details Date Type Department Care Team (Late st Contact Info) Description 06/09/2018 Procedure Pass [facility] PERIOPERATIVE DEPT 55 [place] [id number] Social History Tobacco Use Types Packs/Day Years [...] on filedocumented in this encounter Care Teams Toll Ticket Clerk Relationship Specialty Start Date End Date Melanie Godoy MD [address] [place] [address] PCP - General 04/03/14 Bob Pena MD [address] [place] [address] [facility] [address] [place] [address] [email or web address] Primary Oncologist Medical Oncology 07/31/19 documented as of this encounter Additional Source Comments The information contained in this document represents components of the legal health record. It is not the complete legal health record.[facility]
--- OUTSIDE RECORDS SUMMARY | 2025-07-02 12:25 | XMS_ITS | Encounter Summary ---
Author Organization [facility] Address [address] [place] [address] Phone Care Team Providers Care Assembler Watch Train Name Role Phone Melanie Godoy MD Primary Care Provide r Bob Pena MD Unavailable [phone] Encounter Details Date Type Department Care Team (Late st Contact Info) Description 04/30/2020 Procedure Pass [facility] 4 [facility]O DEPT [address] [facility], 4th [place] [address] Social History Tobacco Use Types Packs/Day Years [...] on filedocumented in this encounter Care Teams Assembler Watch Train Relationship Specialty Start Date End Date Melanie Godoy MD 20 [place] [address] PCP - General 04/03/14 Bob Pena MD [address] [place] [address] [address] [place] [address] [email or web address] Primary Oncologist Medical Oncology 07/31/19 documented as of this encounter Additional Source Comments The information contained in this document represents components of the legal health record. It is not the complete legal health record.[facility]
--- OUTSIDE RECORDS SUMMARY | 2025-07-02 12:25 | XMS_ITS | Encounter Summary ---
Author Organization [facility] Address [address] [place] [address] Phone Care Team Providers Care Automatic Fancy Machine Operator Name Role Phone Melanie Godoy MD Primary Care Provide r Bob Pena MD Unavailable [phone] Reason for Visit * Reason Comments Medication Refill Encounter Details Date Type Department Care Team (Late st Contact Info) Description 03/21/2019 Refill [facility] [address] [facility], 7[address], [address] [place] [address] PhotopoulosJose L N, PIPELINES MANAGER [address] [facility] [address] [place] [address] [email or web address] Medication Refill Social History Tobacco Use Types [...] on filedocumented in this encounter Care Teams Automatic Fancy Machine Operator Relationship Specialty Start Date End Date Melanie Godoy MD 20 [place] [address] PCP - General 04/03/14 Bob Pena MD [address] [facility] [address] [place] [address] [email or web address] Primary Oncologist Medical Oncology 07/31/19 documented as of this encounter Additional Source Comments The information contained in this document represents components of the legal health record. It is not the complete legal health record.[facility]
--- OUTSIDE RECORDS SUMMARY | 2025-07-02 12:25 | XMS_ITS | Encounter Summary ---
Author Organization [facility] Address [address] [place] [address] Phone Care Team Providers Care Services Host Name Role Phone Melanie Godoy MD Primary Care Provide r Bob Pena MD Unavailable Encounter Details Date Type Department Care Team (Late st Contact Info) Description 04/26/2020 Orders Only [address] [facility], 4th [place] [address] Gareth York MD [address] [address] [email or web address] Social History Tobacco Use Types Packs/Day Years [...] on filedocumented in this encounter Care Teams Services Host Relationship Specialty Start Date End Date Melanie Godoy MD 20 [place] [address] PCP - General 04/03/14 Bob Pena MD [address] [facility] [address] [place] [address] [email or web address] Primary Oncologist Medical Oncology 07/31/19 documented as of this encounter Additional Source Comments The information contained in this document represents components of the legal health record. It is not the complete legal health record.[facility]
== END 2025-07-02 12:02 | disposition home or self-care (01) ==
LOC: HO.HNS 10:55
PROVIDERS: Visit Provider Physician Assistant
DX: M43.10 Spondylolisthesis, site unspecified (principal)
CPT/HCPCS: 99205

== ENCOUNTER → 2025-07-02 11:31 | Outpatient (BNV) | payer MEDICARE, OTHER, SELFPAY | PROVIDERS: Visit Provider Radiology Diagnostic Radiology | DX: M43.17 Spondylolisthesis, lumbosacral region (principal); M47.895 Other spondylosis, thoracolumbar region | CPT/HCPCS: 72110 ==